=== PATIENT | female | born 1980 | race Caucasian/White ===

== ENCOUNTER 2016-08-06 14:03 | Emergency (ER) | payer OTHER ==
[~2016-08-06 14:03] MED LIST: ABILIFY5 MG PO; ADHD MED PO; ALPRAZOLAM PO; AUGMENTIN PO; BENADRYL25 M1 PO; CIPRO PO; CLARITIN10 M3 PO; CLARITIN10 MG PO; DARVOCET-N 1001 TAB PO; DEPRESSION MED PO; DICLOFENAC PO; ELIMITE60 G1 TOP; FAMOTIDINE PO; FLEXERIL PO; KLONOPIN PO; LORTAB 5-325 M1 EACH PO; MEDROL PO; MEDROL4 MG/DOSE- PO; NO MEDICATIONS; PEPCID40 MG PO; PHENERGAN PO; PREDNISONE PO; PREDNISONE10 MG PO; ROBITUSSIN-DM120 ML PO; SEROQUEL PO; TRAZODONE HCL150 MG PO; ULTRAM PO; VIBRAMYCIN100 M1 PO; VOLTAREN75 MG PO; ZOFRAN PO
[2016-08-09] MEDS ORDERED: MEDROL (16:26)
== END 2016-08-06 15:13 | disposition home or self-care (01) ==
LOC: SED 14:03
DX: J02.9 Acute pharyngitis, unspecified (principal); L25.8 Unspecified contact dermatitis due to other agents; F31.9 Bipolar disorder, unspecified; F17.210 Nicotine dependence, cigarettes, uncomplicated; Z88.0 Allergy status to penicillin; Z88.1 Allergy status to other antibiotic agents; Z88.5 Allergy status to narcotic agent
CPT/HCPCS: 87651; 99282

== ENCOUNTER 2016-08-09 17:03 | Emergency (ER) | payer OTHER ==
--- NOTE | ~2016-08-09 | CR63 ---
[facility] A Service [facility] RADIOLOGY TEXT RESULTS PATIENT: JENNA MISTRY LOCATION: SED : 82 UNIT #: [id number] AGE: [address]: Vincent Pierson PAC SEX: F ORDER DR: [id number] [place] [id number] E MR#: [id number] Acc #: [id number] NAME: JENNA MISTRY : 1980 SEX: F STUDY DATE/TIME: 08/09/2016 17:00 UNIT: SED ROOM: STUDY DESCRIPTION: CR Chest 2 View Attending Physician: Vincent Pierson P.A.-C. Ordering Physician: Vincent Pierson P.A.-C. Primary Care Physician: Radames Marinelli M.D. MEDICAL IMAGING REPORT This report is preliminary unless electronic signature is present. EXAM 2 views 08/09/2016 HISTORY Cough. 3 days duration. Throat complaints, allergic reaction to medications, depression, bipolar. TECHNIQUE PA and lateral radiographs of the chest are presented. COMPARISON 11/13/2011 FINDINGS The lungs are well inflated. There is no evidence of acute pulmonary disease. No pleural effusion or pneumothorax. No suspicious nodule. 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 Heart and mediastinum normal in size and contour. Bony structures show stable very mild thoracic scoliosis. No acute-appearing bony abnormality. Dictated by... Vincent Dahl M.D. THIS IS AN ELECTRONICALLY VERIFIED REPORT Vincent Dahl M.D. at 08/10/2016 10:21 PM HERMELINDO/claribel TD: 08/09/2016 21:35 JOB #: [id number] [facility] A Service of [facility] RADIOLOGY TEXT RESULTS PATIENT: JENNA MISTRY LOCATION: SED : 82 UNIT #: [id number] AGE: [address]: Vincent Pierson PAC SEX: F ORDER DR: MEDICAL IMAGING REPORT Page 1 of 1
[~2016-08-09 17:03] MED LIST changes: +MEDROL
== END 2016-08-09 17:37 | disposition home or self-care (01) ==
LOC: SED 17:03
DX: J06.9 Acute upper respiratory infection, unspecified (principal); F17.210 Nicotine dependence, cigarettes, uncomplicated; Z88.0 Allergy status to penicillin; Z88.5 Allergy status to narcotic agent; Z88.1 Allergy status to other antibiotic agents
CPT/HCPCS: 71020; 87651; 99283

== ENCOUNTER 2016-08-26 09:40 | Emergency (ER) | payer OTHER | END 2016-08-26 10:33 | disposition home or self-care (01) | LOC: SED 09:40 | DX: N64.4 Mastodynia (principal); Z98.51 Tubal ligation status; Z88.0 Allergy status to penicillin; Z88.1 Allergy status to other antibiotic agents; F17.210 Nicotine dependence, cigarettes, uncomplicated | CPT/HCPCS: 99282 ==

== ENCOUNTER 2016-09-26 13:32 | Emergency (ER) | payer OTHER | END 2016-09-26 14:17 | disposition home or self-care (01) | LOC: SED 13:32 | DX: T78.40XA Allergy, unspecified, initial encounter (principal); J45.909 Unspecified asthma, uncomplicated; Z98.51 Tubal ligation status; F17.210 Nicotine dependence, cigarettes, uncomplicated; Z88.1 Allergy status to other antibiotic agents; Z88.8 Allergy status to other drugs, medicaments and biological substances | CPT/HCPCS: 99282 ==